=== PATIENT | male | born 1990 | race Two or more races ===

== ENCOUNTER 2022-06-22 11:47 | Emergency (ER) | payer MEDICAID ==
[~2022-06-22] VITALS: Ht 167.6 cm; Wt 68.8 kg
[2022-06-22] MEDS ORDERED: HALOPERIDOL LACTATE 5 MG/ML INJ VIAL IM ONE ×2 (12:00→16:45)
[2022-06-22] MEDS ORDERED: LORazepam 2MG/ML-1ML VIAL IM ONE ×3 (12:00→16:45)
[2022-06-22] MEDS ORDERED: diphenhdrAMINE HCL 50 MG/1 ML VL IM ONE ×2 (12:00)
[2022-06-22 20:01] LABS: Hemoglobin 16.3 g/dL (13.5-17.5)
[2022-06-22 20:06] LABS: Hematocrit 48.7 % (41.0-53.0); Mean Corpuscular Hemoglobin 30.4 pg (28.0-32.0); Mean Corpuscular Hgb Conc. 33.4 g/dL (32.0-36.0); Red Blood Cells 5.35 10^6/uL (4.5-5.90); Red Cell Distribution Width 12.9 % (11.8-14.3)
[2022-06-22 20:14] LABS: White Blood Cell 42.6 10^3/uL (4.4-10.8)
[2022-06-22 20:16] LABS: Basophils % (manual) 0 (0.0-2.0); Blast Cells 0; Eosinophils % (manual) 0 (0-7); Metamyelocytes % 0; Myelocytes % 0; Promyelocytes % 0; Reactive Lymphocytes 0
[2022-06-22 20:19] LABS: BUN/Creatinine Ratio 14.7
[2022-06-22 20:22] LABS: Bilirubin, Total 1.3 mg/dL (0.2-1.0); Total Protein 8.4 g/dL (6.4-8.2)
[2022-06-22 21:06] LABS: Band Neutrophils % (manual) 10; Lymphocytes % (manual) 4 (10.0-50.0); Monocytes % (manual) 6 (0-12)
[2022-06-23] MEDS ORDERED: cefTRIAXone 1GM/50ML D5W 50 ML IV ONE (06:30)
[2022-06-23 08:24] LABS: Alcohol, Urine < 3.0 mg/dL (0-10); Amphetamine Screen, Urine POSITIVE (NEGATIVE); Barbiturate Scree,Urine NEGATIVE (NEGATIVE); Benzodiazephine Screen, Urine NEGATIVE (NEGATIVE); Cannabinoid Screen, Urine NEGATIVE (NEGATIVE); Cocaine Screen, Urine NEGATIVE (NEGATIVE); Opiate Scree,Urine NEGATIVE (NEGATIVE); Phencyclidine Screen, Urine NEGATIVE (NEGATIVE)
[2022-06-23] MEDS ORDERED: SODIUM CHLORIDE 0.9% 1,000 ML IV ONE (12:00)
[2022-06-23 12:39] LABS: Hematocrit 44.9 % (41.0-53.0); Hemoglobin 15.2 g/dL (13.5-17.5); Mean Corpuscular Hemoglobin 30.7 pg (28.0-32.0); Mean Corpuscular Hgb Conc. 33.8 g/dL (32.0-36.0); Red Blood Cells 4.93 10^6/uL (4.5-5.90); Red Cell Distribution Width 12.9 % (11.8-14.3); White Blood Cell 25.3 10^3/uL (4.4-10.8)
[2022-06-23 12:44] LABS: Basophils % (manual) 0 (0.0-2.0); Blast Cells 0; Eosinophils % (manual) 0 (0-7); Metamyelocytes % 0; Myelocytes % 0; Promyelocytes % 0; Reactive Lymphocytes 0
[2022-06-23 13:57] LABS: Band Neutrophils % (manual) 10; Lymphocytes % (manual) 18 (10.0-50.0); Monocytes % (manual) 8 (0-12)
[2022-06-23] MEDS ORDERED: ACETAMINOPHEN 325 MG TAB PO ONE (17:45)
[2022-06-23 20:00] VITALS: BP 99/56
[2022-06-23] MEDS ORDERED: QUEtiapine FUMARATE 25 MG TAB PO ONE (22:00)
== END 2022-06-23 20:10 | disposition home or self-care (01) ==
LOC: ER 11:57
DX: G93.41 Metabolic encephalopathy (principal); F41.1 Generalized anxiety disorder; R41.82 Altered mental status, unspecified; F31.9 Bipolar disorder, unspecified; F20.9 Schizophrenia, unspecified; R94.31 Abnormal electrocardiogram [ECG] [EKG]
CPT/HCPCS: 36415; 70450; 73120; 80053; 80307; 80320; 85007; 85027; 93005; 96361; 96365; 96372; 99285; J0696; J1200; J1630; J2060; J7030

== ENCOUNTER 2022-10-12 11:02 | Emergency (ER) | payer MEDICAID ==
[~2022-10-12] VITALS: Ht 170.2 cm; Wt 80.2 kg
[2022-10-12] MEDS ORDERED: IBUP600T28 PO (14:06)
[2022-10-12] MEDS ORDERED: CYCL-839 PO (14:06)
[2022-10-12] MEDS ORDERED: KETOROLAC TROMETH 30 MG/ML 1ML VIAL IM ONE (14:15)
[2022-10-12 14:58] VITALS: BP 125/76
== END 2022-10-12 14:17 | disposition home or self-care (01) ==
LOC: ER 11:02
DX: S39.012A Strain of muscle, fascia and tendon of lower back, initial encounter (principal); F17.210 Nicotine dependence, cigarettes, uncomplicated; F12.10 Cannabis abuse, uncomplicated; X50.0XXA Overexertion from strenuous movement or load, initial encounter; Y93.89 Activity, other specified; Y92.89 Other specified places as the place of occurrence of the external cause; Y99.8 Other external cause status
CPT/HCPCS: 72100; 96372; 99283; J1885

== ENCOUNTER 2023-06-19 08:05 | Emergency (ER) | payer MEDICAID ==
[~2023-06-19] VITALS: Ht 170.2 cm; Wt 75.7 kg
[~2023-06-19 08:05] MED LIST: CYCL-839 PO; IBUP1TAB5 PO
[2023-06-19 08:55] LABS: Basophils # (auto) 0 10 ^3/uL (0-0.2); Basophils % (auto) 0.3 % (0.0-2.0); Eosinophils # (auto) 0.1 10 ^3/uL (0-0.8); Eosinophils % (auto) 0.6 % (0.0-7.0); Hematocrit 47.2 % (41.0-53.0); Hemoglobin 15.7 g/dL (13.5-17.5); Lymphocytes # (auto) 1.8 10 ^3/uL (0.4-5.4); Lymphocytes % (auto) 15.8 % (10.0-50.0); Mean Corpuscular Hemoglobin 30.4 pg (28.0-32.0); Mean Corpuscular Hgb Conc. 33.3 g/dL (32.0-36.0); Mean Corpuscular Volume 91.3 fL (80.0-100.0); Monocytes # (auto) 0.4 10 ^3/uL (0-1.3); Monocytes % (auto) 3.3 % (0.0-12.0); Neutrophils # (auto) 8.9 10 ^3/uL (1.6-8.6); Red Blood Cells 5.17 10^6/uL (4.5-5.90); Red Cell Distribution Width 13.1 % (11.8-14.3); White Blood Cell 11.2 10^3/uL (4.4-10.8)
[2023-06-19 09:04] LABS: Urine Bacteria NONE SEEN /hpf (None Seen); Urine Blood Negative /uL (Negative); Urine Clarity Clear (Clear); Urine Color Yellow (Yellow); Urine Protein, UAD Negative (Negative); Urine Urobilinogen Normal (Negative); Urine WBC 11 /hpf (0 - 3)
[2023-06-19 09:10] LABS: Amphetamine Screen, Urine Pos (NEGATIVE); Barbiturate Scree,Urine Neg (NEGATIVE); Benzodiazephine Screen, Urine Neg (NEGATIVE); Cocaine Screen, Urine Neg (NEGATIVE)
[2023-06-19 09:11] LABS: Cannabinoid Screen, Urine Neg (NEGATIVE); Opiate Scree,Urine Neg (NEGATIVE); Phencyclidine Screen, Urine Neg (NEGATIVE)
[2023-06-19 09:11] LABS: Alanine Aminotransferase 59 U/L (7-40); Calcium 9.6 mg/dL (8.5-10.1); Carbon Dioxide 23 mmol/L (20-30); Chloride 107 mmol/L (98-107); Glucose 94 mg/dL (74-106); Potassium 3.9 mmol/L (3.5-5.1)
[2023-06-19 09:12] LABS: Anion Gap 9 (5-15); Aspartate Aminotransferase 33 U/L (13-40); BUN/Creatinine Ratio 9.4 (10.0-20.0); Bilirubin, Total 0.5 mg/dL (0.2-1.0); Blood Urea Nitrogen 8 mg/dL (9-23); Sodium 139 mmol/L (136-145); Total Protein 7.7 g/dL (5.7-8.2)
[2023-06-19] MEDS ORDERED: LORazepam 2MG/ML-1ML VIAL IM ONE (09:45)
[2023-06-19 09:46] VITALS: PULSE 106; RESP 16; O2SAT 100
[2023-06-19 10:13] LABS: Alkaline Phosphatase 102 U/L (46-116)
[2023-06-19 12:00] VITALS: BP 136/64; PULSE 102; RESP 16; O2SAT 100
== END 2023-06-19 12:04 | disposition home or self-care (01) ==
LOC: ER 08:05
DX: F15.10 Other stimulant abuse, uncomplicated (principal); F41.1 Generalized anxiety disorder; Z79.899 Other long term (current) drug therapy
CPT/HCPCS: 36415; 71045; 80053; 80307; 81001; 84484; 85025; 93005; 96372; 99285; J2060

== ENCOUNTER 2023-11-03 13:34 | Emergency (ER) | payer MEDICAID ==
[~2023-11-03] VITALS: Ht 170.2 cm; Wt 79.9 kg
[2023-11-03 16:24] VITALS: BP 104/72; PULSE 78; RESP 16; TEMP 97.8; O2SAT 97
== END 2023-11-03 16:53 | disposition home or self-care (01) ==
LOC: ER 13:34
DX: N53.12 Painful ejaculation (principal); R36.1 Hematospermia; F41.9 Anxiety disorder, unspecified; F20.9 Schizophrenia, unspecified; F17.210 Nicotine dependence, cigarettes, uncomplicated; F10.90 Alcohol use, unspecified, uncomplicated; F15.90 Other stimulant use, unspecified, uncomplicated; Z79.899 Other long term (current) drug therapy; Y90.0 Blood alcohol level of less than 20 mg/100 ml
CPT/HCPCS: 81002